=== PATIENT | female | born 1990 | race Caucasian/White ===

== ENCOUNTER 2023-11-23 13:06 | Emergency (ER) | payer OTHER ==
[2023-11-23 13:22] VITALS: BP 134/101; PULSE 96; RESP 18; TEMP 98.4; BMI 21.6
[2023-11-23] MEDS: SODIUM CHLORIDE 0.9% 500 ML INFUS.BAG IV ONE ×2 (13:40→15:05)
[2023-11-23] MEDS ORDERED: ONDANSETRON 4 MG/2 ML VIAL ONE ×2 (13:48→14:58)
[2023-11-23] MEDS ORDERED: FAMOTIDINE 20 MG/50 ML IVPB 20 MG/50 ML MG IVPB ONE (13:48)
[2023-11-23] MEDS ORDERED: chlordiazePOXIDE HCL 25 MG CAPSULE ONE (13:48)
[2023-11-23] MEDS: ONDANSETRON 4 MG/2 ML VIAL IVPUSH ONE ×2 (13:51→15:05)
[2023-11-23] MEDS: chlordiazePOXIDE HCL 25 MG CAPSULE PO ONE (13:52)
[2023-11-23] MEDS: FAMOTIDINE 20 MG/50 ML IVPB 20 MG/50 ML MG IVPB ONE (13:55)
[2023-11-23 14:06] LABS: HEMATOCRIT 42.8 % (32.4-45.2); HEMOGLOBIN 13.4 G/dL (10.7-15.3); MCH 32.3 pg (25.7-33.7); MCHC 31.2 g/dl (32.0-36.0); MEAN CELL VOLUME 103.7 fl (80-96); MEAN PLT VOLUME 9.1 fl (7.5-11.1); PLATELET COUNT 118.9 10^3/uL (134-434); RBC 4.13 10^6/uL (3.60-5.2); RDW 14.4 % (11.6-15.6); WHITE BLOOD COUNT 4.5 10^3/uL (4.0-10.8)
[2023-11-23 14:30] LABS: ALBUMIN 4.7 g/dl (3.4-5.0); ALK PHOS 106 U/L (45-117); ANION GAP 22 mmol/L (4-13); BILIRUBIN,TOTAL 3.3 mg/dl (0.2-1); CALCIUM 10.1 mg/dl (8.5-10.1); CHLORIDE 94 mmol/L (98-107); CO2 21 mmol/L (21-32); CREATININE 0.6 mg/dl (0.6-1.3); GLUCOSE,RANDOM 70 mg/dl (74-106); POTASSIUM 3.9 mmol/L (3.5-5.1); SGOT/AST 187 U/L (15-37); SGPT/ALT 138 U/L (7-52); SODIUM 137 mmol/L (136-145); TOT PROT 8.3 g/dl (6.4-8.2)
[2023-11-23 14:44] LABS: MACROCYTOSIS 1+; PLATELET ESTIMATE SLT DECREASE
[2023-11-23] MEDS ORDERED: MAG HYDROX/AL HYDROX/SIMETH 30 ML UNIT-DOSE CUP ONE (15:28)
[2023-11-23] MEDS: MAG HYDROX/AL HYDROX/SIMETH 30 ML UNIT-DOSE CUP PO ONE (15:30)
== END 2023-11-23 16:53 | disposition home or self-care (01) ==
LOC: FER 13:06
PROC: 3E033GC Introduction of Other Therapeutic Substance into Peripheral Vein, Percutaneous Approach (ICD-10-PCS; principal; 2023-11-23)
PROC: 3E033GC Introduction of Other Therapeutic Substance into Peripheral Vein, Percutaneous Approach (ICD-10-PCS; 2023-11-23)
PROC: 3E033GC Introduction of Other Therapeutic Substance into Peripheral Vein, Percutaneous Approach (ICD-10-PCS; 2023-11-23)
DX: R11.2 Nausea with vomiting, unspecified (principal); R07.89 Other chest pain
CPT/HCPCS: 36415; 80053; 83690; 85027; 93005; 99284-25

== ENCOUNTER 2023-12-03 17:46 | Emergency (ER) | payer OTHER ==
[2023-12-03 17:59] VITALS: BP 97/61; PULSE 75; RESP 16; TEMP 98.6; BMI 22.4
[2023-12-03] MEDS ORDERED: LIDOCAINE HCL 1%, 10 MG/ML (20ML VIAL) ONE (18:44)
[2023-12-03] MEDS: LIDOCAINE HCL 1%, 10 MG/ML (50 mL VIAL) SQ ONE (19:18)
== END 2023-12-03 19:21 | disposition home or self-care (01) ==
LOC: FER 17:46
DX: S00.452A Superficial foreign body of left ear, initial encounter (principal)
CPT/HCPCS: 99283-25